=== PATIENT | female | born 1985 | race American Indian/Alaskan Native ===

== ENCOUNTER 2018-10-24 19:49 | Emergency (ER) | payer MEDICAID ==
[~2018-10-24] VITALS: Ht 165.1 cm; Wt 88.5 kg
== END 2018-10-24 22:07 | disposition home or self-care (01) ==
LOC: ER 19:49
DX: S40.261A Insect bite (nonvenomous) of right shoulder, initial encounter (principal); F17.210 Nicotine dependence, cigarettes, uncomplicated; W57.XXXA Bitten or stung by nonvenomous insect and other nonvenomous arthropods, initial encounter
CPT/HCPCS: 99282